=== PATIENT | female | born 1950 | race Caucasian/White ===

== ENCOUNTER → 2018-03-26 | Outpatient (REF) | payer MEDICARE, OTHER ==
[~2018-03-26] MED LIST: /MELO7TA PO; /PANT40TA PO; CENTTAB47 PO; COUM2.5T17 PO; EXTR500C4 PO; FLAG500T PO; LEVO500T PO; LORTABELIX FT; MAXA5TAB10 PO; MIRA33504 PO; NORCOTAB PO; PLAQ200T PO; TYLE325T5 PO; ZETI10TA21 PO
== END ==
LOC: M WUC 14:39
PROVIDERS: ATTEND Physician Assistant
DX: N39.0 Urinary tract infection, site not specified (principal)

== ENCOUNTER → 2018-05-28 | Outpatient (REF) | payer MEDICARE, OTHER | LOC: M LAB REF 12:18 | PROVIDERS: ATTEND Physician Assistant | DX: R30.0 Dysuria (principal); Z79.01 Long term (current) use of anticoagulants ==

== ENCOUNTER → 2018-06-27 | Outpatient (REF) | payer MEDICARE, OTHER | LOC: M LAB REF 14:44 | PROVIDERS: ATTEND Nurse Practitioner Adult Health | DX: N39.0 Urinary tract infection, site not specified (principal) ==

== ENCOUNTER 2019-07-25 17:56 | Emergency (ER) | payer MEDICARE, BC ==
[~2019-07-25] VITALS: Ht 175.3 cm; Wt 101.3 kg
[~2019-07-25 17:56] MED LIST changes: -/MELO7TA PO; -/PANT40TA PO; +MOBI4TAB PO; +PROT1TAB2 PO
[2019-07-25] MEDS ORDERED: ROSU5TAB5 PO (18:18)
[2019-07-25] MEDS ORDERED: ALLE180T33 PO (18:18)
[2019-07-25 18:19] LABS: BASO % 0.4 % (0.0-1.0); EOS # 0.4 10^3/uL (0.0-0.5); EOS % 3.9 % (0.0-3.0); HEMATOCRIT 43.6 % (36.0-47.0); HEMOGLOBIN 13.7 g/dl (12.0-15.5); LYMPH # 2.5 10^3/uL (1.5-5.0); LYMPH % 24.7 % (24.0-44.0); MEAN CORPUSCULAR HEMOGLOBIN 27.1 pg (27.0-33.0); MEAN CORPUSCULAR HGB CONC 31.4 g/dl (32.0-36.5); MEAN CORPUSCULAR VOLUME 86.2 fl (80.0-96.0); MONO # 0.7 10^3/uL (0.0-0.8); MONO % 6.5 % (0.0-5.0); NEUTROPHILS # 6.4 10^3/uL (1.5-8.5); NEUTROPHILS % 64.3 % (36.0-66.0); PLATELET COUNT, AUTOMATED 263 10^3/uL (150-450); RED BLOOD COUNT 5.06 10^6/uL (4.00-5.40)
[2019-07-25] MEDS ORDERED: NITROGLYCERIN 0.4 MG SUBL TABLET SL STA (18:32)
[2019-07-25] MEDS ORDERED: ASPIRIN 81 MG CHEW TABLET PO ONE (18:45)
[2019-07-25 18:50] LABS: D-DIMER QUANT 949.46 ng/ml (<500)
[2019-07-25 18:58] LABS: ALBUMIN 3.3 GM/DL (3.2-5.2); ALT/SGPT 18 U/L (12-78); BILIRUBIN,DIRECT 0.2 MG/DL (0.0-0.2); BILIRUBIN,TOTAL 0.4 MG/DL (0.2-1.0); BLOOD UREA NITROGEN 11 MG/DL (7-18); CALCIUM LEVEL 8.6 MG/DL (8.8-10.2); CARBON DIOXIDE LEVEL 26 MEQ/L (21-32); CHLORIDE LEVEL 106 MEQ/L (98-107); CK-MB VALUE MASS 1.2 NG/ML (<3.6); CPK CREATINE PHOSPHOKINASE 59 U/L (26-192); CREATININE FOR GFR 0.97 MG/DL (0.55-1.30); FREE T4 1.46 NG/DL (0.76-1.46); GLOMERULAR FILTRATION RATE > 60.0 (>39); GLUCOSE, FASTING 92 MG/DL (70-100); LIPASE 213 U/L (73-393); MB/CK RELATIVE INDEX 2.03 (< OR =4); NT-PRO BNP 118 PG/ML (<125); POTASSIUM SERUM 3.4 MEQ/L (3.5-5.1); SODIUM LEVEL 140 MEQ/L (136-145); TOTAL PROTEIN 7.4 GM/DL (6.4-8.2); TROPONIN I < 0.02 NG/ML (< 0.10)
[2019-07-25] MEDS ORDERED: ISOVUE-370 76% 100ML VIAL As Ordered ONE (19:07)
--- NOTE | 2019-07-25 19:55 | REPVR ---
PROCEDURE INFORMATION: Exam: CT Angiography Chest With Contrast Exam date and time: 07/25/2019 7:18 PM Age: 69 years old Clinical indication: Chest pain; Prior surgery; Additional info: Chest pain/sob/elevated dimer; R/O pe TECHNIQUE: Imaging protocol: Computed tomographic angiography of the chest with intravenous contrast. 3D rendering: MIP and/or 3D reconstructed images were created by the technologist. Radiation optimization: All CT scans at this facility use at least one of these dose optimization techniques: automated exposure control; mA and/or kV adjustment per patient size (includes targeted exams where dose is matched to clinical indication); or iterative reconstruction. Contrast material: ISO 370; Contrast volume: 100 ml; Contrast route: IV; COMPARISON: CR PORTABLE CHEST X-RAY 07/25/2019 6:08 PM FINDINGS: Pulmonary arteries: Normal. No pulmonary emboli. Great vessels off aortic arch: There is a focal area of eccentric mural thrombus in the aortic wall along the left lateral margin extending superiorly up to between base of the origin of the left common carotid artery anteriorly and left subclavian artery posteriorly Aorta: Plaque noted within the aorta Aortic annulus = 2.7 centimetres Sinuses of Valsalva = 3.3 centimetres Sign on tubular junction 2.9 centimetres. Mid Ascending thoracic aorta = 4.4 cm High ascending thoracic aorta = 3.6 cm Thyroid: A and a 2 cm hypodense nodule right lobe of the thyroid. 1.1 cm hypodense nodule in the thyroid isthmus. Lungs: Hypoventilatory change at the lung bases.. No consolidation. No masses. Pleural space: Unremarkable. No pneumothorax. No pleural effusion. Heart: There is moderate cardiomegaly.. No pericardial effusion. Lymph nodes: Unremarkable. No enlarged lymph nodes. Adrenals: 2 cm left adrenal mass (12 H) a the. 2 cm right adrenal mass (25 H) Bones/joints: Unremarkable. No acute fracture. Soft tissues: Unremarkable. IMPRESSION: 1. No acute pulmonary embolism. 2. Short segment of medial displacement calcified intima the level of the aortic arch extending superiorly between the origins left common carotid artery anteriorly and left subclavian artery posteriorly. There is no extension of the thrombus into the great vessels. This could represent subintimal hemorrhage/ulceration. 3. 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 . 4. Bilateral adrenal masses not fully characterized. MR might be considered. 5. Thyroid nodules.Evaluate with thyroid ultrasound. COMMENTS: Consistent with the [employer]'s Incidental Findings Committee white paper (J Am Karime Radiol 2015): In patients aged 35 years and older with an incidental thyroid nodule equal to or greater than 1.[address], MRI or extrathyroidal US, further evaluation with dedicated thyroid US is recommended for patients with normal life expectancy and without comorbidities. For smaller nodules without suspicious features, no further evaluation or follow up is recommended. Electronically signed by: Poornima Jules On 07/25/2019 19:54:44 PM
--- NOTE | 2019-07-25 21:37 | REPVR ---
PROCEDURE INFORMATION: Exam: US Soft Tissue Head and Neck, Thyroid Exam date and time: 07/25/2019 9:25 PM Age: 69 years old Clinical indication: Neck pain; Additional info: Neck discomfort; Further evaluate nodules TECHNIQUE: Imaging protocol: Real-time ultrasound scan of the neck with image documentation. Exam focused on the thyroid. COMPARISON: No relevant prior studies available. FINDINGS: Right thyroid lobe: The right lobe of the thyroid measures 4.3 x 1.8 x 2.3 cm. A cyst noted in the upper pole measuring 0.4 x 0.24 x 0.54 cm. Spongiform nodule noted in the midportion of the right lobe measuring 3.2 x 1.6 by 2.1 centimetres. Left thyroid lobe: Left lobe of the thyroid measures 1.9 by 4.3 x 1.7 centimetres. Spongiform nodule in the lower pole measuring 1.3 x 0.7 x 1 cm. Second spongiform nodule in the midportion of the gland measuring 0.9 x 0.6 x 1 cm. Small cyst in the mid gland measuring 0.27 x 0.15 x 0.25 centimetres. Isthmus: Thyroid isthmus measures 0.6 centimetres. Follicular cyst noted measuring 1.1 x 0.65 x 1 cm. Hypoechoic circumscribed nodule with an echogenic mural focus present in the isthmus measuring 0.34 x 0.16 x 0.3 centimetres. IMPRESSION: 1. Bilateral thyroid nodules. 2. One spongiform nodule on the right and 2 spongiform nodules on the left with TIRADS = category 1 or benign. 3. Less than 5 mm cyst in the left lobe of the thyroid,TIRADS = category 1, benign. 4. 1.1 cm cyst in the thyroid isthmus, TIRADS = category 1, benign 5. 3 mm hypoechoic nodule with small mural calcification.TIRADS = category 3 = mildly suspicious. Follow-up recommended to the Electronically signed by: Poornima Jules On 07/25/2019 21:37:33 PM
[2019-07-25 22:51] LABS: CK-MB VALUE MASS 1.6 NG/ML (<3.6); MB/CK RELATIVE INDEX 2.58 (< OR =4); TROPONIN I 0.13 NG/ML (< 0.10)
[2019-07-25] MEDS ORDERED: HEPARIN DRIP 25,000 UNITS in IV 1 EA IV SCH (23:06)
[2019-07-25] MEDS ORDERED: METOPROLOL TART 25 MG TABLET PO ONE (23:15)
[2019-07-25] MEDS ORDERED: HEPARIN SOD (PORCINE) 5000UNITS/ML VIAL (J1644 PER 1000UNITS) IV ONE (23:15)
[2019-07-25] MEDS ORDERED: CLOPIDOGREL 300 MG TAB (PLAVIX) PO ONE (23:15)
[2019-07-25] MEDS ORDERED: METOPROLOL 5 MG/5 ML VIAL IV STA (23:24)
[2019-07-25 23:28] VITALS: BP 187/80
[2019-07-25 23:32] LABS: INR 0.98; PROTHROMBIN TIME 12.7 SECONDS (11.8-14.0)
[2019-07-25 23:33] LABS: PARTIAL THROMBOPLASTIN TIME 35.5 SECONDS (25.0-38.4)
[2019-07-26] VITALS: BP 164/75
--- NOTE | 2019-07-26 07:42 | REP ---
CHEST, SINGLE VIEW: Signal view of the chest is performed. No acute infiltrate or pulmonary edema is seen. There is mild cardiomegaly. There is calcification and tortuosity of the thoracic aorta. IMPRESSION: No acute infiltrate. Mild cardiomegaly. Electronically Signed by Alphonse Osullivan MD 07/26/2019 09:46 P
--- NOTE | 2019-07-26 10:08 | ECGEPIP ---
[facility] - ED Test Date: 2019-07-25 Pat Name: VIDHI OAKLEY Department: Room: - Gender: Female [employer]: : 1950 Requested By: Tere Harry Order Number: [id number] Reading MD: Cristian Suarez Measurements Intervals [place] Rate: 89 P: 42 MN: 143 QRS: -25 QRSD: 95 T: 46 QT: 360 QTc: 439 Interpretive Statements SINUS RHYTHM BORDERLINE LEFT AXIS DEVIATION INCOMPLETE RIGHT BUNDLE BRANCH BLOCK MINIMAL VOLTAGE CRITERIA FOR LVH, CONSIDER NORMAL VARIANT MINIMAL ST DEPRESSION SIMILAR TO 02/11/15 Electronically Signed on 07-26-2019 10:08:29 EDT by Cristian Suarez
--- NOTE | 2019-07-26 10:16 | ECGEPIP ---
[facility] - ED Test Date: 2019-07-25 Pat Name: VIDHI OAKLEY Department: Room: - Gender: Female Nursing Faculty: pako : 1950 Requested By: PAMELA BRAVO Order Number: [id number] Reading MD: Cristian Suarez Measurements Intervals [place] Rate: 79 P: 56 IL: 140 QRS: -26 QRSD: 138 T: 24 QT: 377 QTc: 435 Interpretive Statements SINUS RHYTHM BORDERLINE LEFT AXIS DEVIATION INCOMPLETE RIGHT BUNDLE BRANCH BLOCK VOLTAGE CRITERIA FOR LVH NSTTW ABNORMALITIES SIMILAR TO PRIOR ON SAME DATE Electronically Signed on 07-26-2019 10:16:09 EDT by Cristian Suarez
== END 2019-07-26 00:17 | disposition short-term general hospital (02) ==
LOC: M ED 17:56
DX: I21.4 Non-ST elevation (NSTEMI) myocardial infarction (principal); I71.2 Thoracic aortic aneurysm, without rupture; R06.02 Shortness of breath; R11.0 Nausea; E04.1 Nontoxic single thyroid nodule; E27.9 Disorder of adrenal gland, unspecified; E78.5 Hyperlipidemia, unspecified; G43.909 Migraine, unspecified, not intractable, without status migrainosus; M32.9 Systemic lupus erythematosus, unspecified; Z87.891 Personal history of nicotine dependence; Z88.5 Allergy status to narcotic agent; Z88.8 Allergy status to other drugs, medicaments and biological substances; Z88.6 Allergy status to analgesic agent; Z79.899 Other long term (current) drug therapy
CPT/HCPCS: 71045; 71275; 76536; 80048; 80076; 82550; 82553; 83690; 83880; 84439; 84443; 84484; 85025; 85379; 85610; 85730; 93005; 93041; 94760; 96365; 96375; 99285; J1644; Q9967

== ENCOUNTER → 2019-09-14 | Outpatient (REF) | payer MEDICARE, BC ==
[~2019-09-14] MED LIST changes: +ALLE180T33 PO; +ROSU5TAB5 PO
== END ==
LOC: M LAB REF 09-10 15:12
PROVIDERS: ATTEND Internal Medicine Endocrinology, Diabetes & Metabolism
DX: E04.2 Nontoxic multinodular goiter (principal)

== ENCOUNTER → 2020-03-29 | Outpatient (CLI) | payer MEDICARE, BC ==
[2020-03-29 12:43] LABS: CREATININE FOR GFR 1.13 MG/DL (0.55-1.30); GLOMERULAR FILTRATION RATE 50.5 (>39)
== END ==
LOC: M LAB 11:36
PROVIDERS: ATTEND Physician Assistant
DX: Z01.818 Encounter for other preprocedural examination (principal); D69.8 Other specified hemorrhagic conditions

== ENCOUNTER → 2020-12-30 | Outpatient (REF) | payer MEDICARE, BC | LOC: M LAB REF 21:33 | PROVIDERS: ATTEND Physician Assistant | DX: R30.0 Dysuria (principal) ==

== ENCOUNTER → 2021-05-16 | Outpatient (CLI) | payer MEDICARE, BC | LOC: M WHC 11:03 | PROVIDERS: ATTEND Nurse Practitioner Adult Health | DX: N63.20 Unspecified lump in the left breast, unspecified quadrant (principal) ==

== ENCOUNTER → 2021-06-01 | Outpatient (CLI) | payer MEDICARE, BC ==
[~2021-06-01] MED LIST changes: +**SFHN** LIDOCAINE 1% MDV 20ML VIAL ONE; +**SFHN** SODIUM BICARBONATE 8.4% 50MEQ 50ML VIAL ONE; +PROP10TA56 PO
[2021-06-01 08:27] VITALS: BP 144/80
== END ==
LOC: M WHCPRO 07:41
PROVIDERS: ATTEND Nurse Practitioner Adult Health
DX: D24.2 Benign neoplasm of left breast (principal)

== ENCOUNTER → 2021-10-27 | Outpatient (REF) | payer MEDICARE, BC ==
[~2021-10-27] MED LIST changes: -**SFHN** LIDOCAINE 1% MDV 20ML VIAL ONE; -**SFHN** SODIUM BICARBONATE 8.4% 50MEQ 50ML VIAL ONE
== END ==
LOC: M LAB REF 11:57
PROVIDERS: ATTEND Nurse Practitioner Adult Health
DX: E27.8 Other specified disorders of adrenal gland (principal); E04.2 Nontoxic multinodular goiter

== ENCOUNTER → 2022-03-27 | Outpatient (CLI) | payer MEDICARE, BC | LOC: M RAD 14:58 | PROVIDERS: ATTEND Nurse Practitioner Adult Health | DX: N95.0 Postmenopausal bleeding (principal) ==

== ENCOUNTER → 2022-06-13 | Outpatient (REF) | payer MEDICARE, BC ==
[~2022-06-13] MED LIST changes: +ECOT81TA5 PO; +EZET10TA21 PO; +PANT40TA29 PO
== END ==
LOC: M SFHCWAGY 17:23
PROVIDERS: ATTEND Specialist
DX: N85.8 Other specified noninflammatory disorders of uterus (principal); N95.0 Postmenopausal bleeding

== ENCOUNTER → 2022-06-28 | Outpatient (CLI) | payer MEDICARE, BC | LOC: M LABSMTC 09:17 | PROVIDERS: ATTEND Anesthesiology | DX: Z01.818 Encounter for other preprocedural examination (principal); Z11.52 Encounter for screening for COVID-19 ==

== ENCOUNTER 2022-07-03 09:33 | Day surgery (SDC) | payer MEDICARE, BC ==
[~2022-07-03] VITALS: Ht 175.3 cm; Wt 91.8 kg
[~2022-07-03 09:33] MED LIST changes: +CYCLOPENTOLATE 1% OPHTH SOLN 2ML BTL OD SCH; +LIDOCAINE 2% W/EPINEPHRINE 20ML VIAL **PRES FREE As Ordered ONE; +LIDOCAINE 4% INJ 5ML AMP As Ordered ONE; +TETRACAINE 0.5% OPHTH SOLN 4ML As Ordered ONE
[2022-07-03] MEDS ORDERED: POVIDONE-IODINE 5% OPHTH PREP SOL 30ML As Ordered ONE (11:04)
[2022-07-03] MEDS ORDERED: PROPARACAINE 0.5% OPHTH SOL 15ML OD ONE (11:10)
[2022-07-03] MEDS ORDERED: MIDAZOLAM INJ 2MG/2ML VIAL As Ordered ONE (11:26)
[2022-07-03] MEDS ORDERED: fentaNYL 100 MCG/2 ML INJECTION As Ordered ONE (11:27)
[2022-07-03] MEDS ORDERED: SODIUM BICARBONATE 8.4% INJ 50MEQ 50ML VIAL As Ordered ONE (12:24)
[2022-07-03] MEDS: TOBRADEX OPHTH OINT 3.5 GM As Ordered ONE ×2 (13:16→13:30)
[2022-07-03 13:40] VITALS: BP 174/76
== END 2022-07-03 14:10 | disposition home or self-care (01) ==
LOC: M SDC 09:33
PROVIDERS: ATTEND Ophthalmology
DX: H02.403 Unspecified ptosis of bilateral eyelids (principal); H02.831 Dermatochalasis of right upper eyelid; H02.834 Dermatochalasis of left upper eyelid; I71.40 Abdominal aortic aneurysm, without rupture, unspecified; I10 Essential (primary) hypertension; I25.2 Old myocardial infarction; E78.5 Hyperlipidemia, unspecified; K21.9 Gastro-esophageal reflux disease without esophagitis; G43.909 Migraine, unspecified, not intractable, without status migrainosus; J45.909 Unspecified asthma, uncomplicated; Z79.899 Other long term (current) drug therapy; Z87.891 Personal history of nicotine dependence; Z88.5 Allergy status to narcotic agent; Z88.8 Allergy status to other drugs, medicaments and biological substances
CPT/HCPCS: 15823; 67904; J2250; J3010

== ENCOUNTER → 2023-05-23 | Outpatient (CLI) | payer MEDICARE, BC ==
[~2023-05-23] MED LIST changes: -CYCLOPENTOLATE 1% OPHTH SOLN 2ML BTL OD SCH; -LIDOCAINE 2% W/EPINEPHRINE 20ML VIAL **PRES FREE As Ordered ONE; -LIDOCAINE 4% INJ 5ML AMP As Ordered ONE; -TETRACAINE 0.5% OPHTH SOLN 4ML As Ordered ONE
== END ==
LOC: M RAD 07:59
PROVIDERS: ATTEND Nurse Practitioner
DX: R74.01 Elevation of levels of liver transaminase levels (principal); K76.0 Fatty (change of) liver, not elsewhere classified; N28.1 Cyst of kidney, acquired; K80.20 Calculus of gallbladder without cholecystitis without obstruction; K76.89 Other specified diseases of liver

== ENCOUNTER → 2024-01-17 | Outpatient (REF) | payer MEDICARE ==
[~2024-01-17] MED LIST changes: +ROSU5TAB40 PO; -ROSU5TAB5 PO
[2024-01-17 14:01] LABS: APPEARANCE, URINE HAZY (CLEAR); BACTERIA, URINE AUTO NEGATIVE (NEGATIVE); BILIRUBIN, URINE AUTO NEGATIVE (NEGATIVE); BLOOD, URINE BLOOD 2+ (NEGATIVE); COLOR, URINE YELLOW (YELLOW); GLUCOSE, URINE (UA) AUTO NEGATIVE (NEGATIVE); KETONE, URINE AUTO NEGATIVE (NEGATIVE); LEUKOCYTE ESTERASE, URINE AUTO 3+ (NEGATIVE); MUCUS, URINE SMALL (NEGATIVE); NITRITE, URINE AUTO NEGATIVE (NEGATIVE); PROTEIN, URINE AUTO NEGATIVE (NEGATIVE); RBC, URINE AUTO 5 /HPF (0-3); SPECIFIC GRAVITY URINE AUTO 1.005 (1.002-1.035); SQUAMOUS EPITHELIAL CELL UR AU 0 /HPF (0-6); UROBILINOGEN, URINE AUTO 0.2 mg/dL (0.0-2.0); WBC, URINE AUTO 42 /HPF (0-3)
== END ==
LOC: M LAB REF 12:24
PROVIDERS: ATTEND Physician Assistant Medical
DX: N39.0 Urinary tract infection, site not specified (principal)